=== PATIENT | female | born 1995 | race African-American/Black ===

== ENCOUNTER 2017-11-14 23:59 | Emergency (ER) | payer OTHER ==
[~2017-11-14] VITALS: Ht 162.6 cm; Wt 52.3 kg
[2017-11-15 01:40] VITALS: BP 128/76
== END 2017-11-15 01:53 | disposition home or self-care (01) ==
LOC: EME 23:59
DX: S30.0XXA Contusion of lower back and pelvis, initial encounter (principal); V49.40XA Driver injured in collision with unspecified motor vehicles in traffic accident, initial encounter; F17.200 Nicotine dependence, unspecified, uncomplicated
CPT/HCPCS: 72100; 99281; 99284